=== PATIENT | female | born 1950 | race Caucasian/White ===

== ENCOUNTER 2019-02-22 13:28 | Day surgery (SDC) | payer BC, SELFPAY ==
--- NOTE | 2019-02-22 13:48 | HP.PCM_ITS ---
History and Physical Date of Admission: 02/22/19 Pre-Op History and Physical ? HPI: The patient is a 68 year old female presenting for pre-operative visit. She is scheduled for?incision and drainage and marsupialization of a right Bartholin's abscess, for?Bartholin's abscess and pain on?02/22/19. ??Procedure discussed along with risks, benefits and complications. ?Other alternatives discussed for management. Consent form signed??Yes.? PAST?MEDICAL?HISTORY PAST MEDICAL HISTORY Diagnosis Date ? Angio-edema ? ? BPPV (benign paroxysmal positional vertigo) ? ? Disorder of bone and cartilage, unspecified ? ? osteopenia ? Esophageal reflux ? ? Gastroesophageal reflux ? History of basal cell carcinoma (BCC) of skin 2015 ? right lower eyelid ? 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 per pt, perianal ? Mixed hyperlipidemia 2010 ? Hyperlipidemia ? Osteopenia ? ? PMH - PAST MEDICAL HISTORY OF ? ? Crohn's ? Unspecified essential hypertension ? ? Essential hypertension ? ? PAST?SURGICAL?HISTORY PAST SURGICAL HISTORY Procedure Laterality Date ? HERNIA REPAIR HX ? 2007 ? HERNIA REPAIR HX ? 2002 ? PANCREATECTOMY CENTRAL ? 05/07/2009 ? PAST SURGICAL HISTORY OF ? ? ? 08/2007 ?diomedes anal squamous crcinoma in situ ? REMOVAL GALLBLADDER ? ? ? 1982 ? REMVL COLON/TERM ILEUM/ILEOCOLOSTOMY ? ? ? 2000 ? TOTAL ABDOM HYSTERECTOMY ? ? ? 1996 ? ? CURRENT?MEDICATIONS Current Outpatient Medications Medication Sig Dispense Refill ? HYDROcodone-acetaminophen (NORCO) 5-325 mg per tablet Take 1 tablet by mouth every 6 hours as needed. ? ? ? Hydrochlorothiazide 12.5 mg capsule ? cefixime (SUPRAX) 400 mg capsule Take 400 mg by mouth. ? ? ? clindamycin (CLEOCIN) 150 mg capsule Take 300 mg by mouth. ? ? ? ondansetron (ZOFRAN) 4 mg tablet Take 1 tablet by mouth every 8 hours as needed. 60 tablet 1 ? Miralax / Gatorade Prep Miralax 238 gm bottle, (2) 32 oz bottles of Gatorade, & 4 Dulcolax 5 mg tabs- as directed per instructions ? ? ? blood sugar diagnostic (ACCU-CHEK GUIDE) test strip Test blood sugar three times a day and as needed for symptoms of high or low sugars DX: E11.9 (labile sugars at times) 300 Strip 3 ? clobetasol (TEMOVATE) 0.05 % ointment Apply 1 application to affected area as needed (for symptom relief). 45 g 0 ? Lancets (ACCU-CHEK FASTCLIX LANCET DRUM) lancets Test blood sugar 3 times daily. ?Dx: E11.9. 300 Each 3 ? dapagliflozin (FARXIGA) 5 mg tab Take 1 tablet by mouth daily with breakfast. 90 tablet 3 ? Insulin Syringe-Needle U-100 (BD INSULIN SYRINGE) 1 mL 25 x 1 syrg Use with B12 IM injections every 4 weeks 10 Syringe 1 ? potassium chloride ER (KLOR-CON M20) 20 mEq tablet Take 1 tablet by mouth twice daily. 180 tablet 3 ? omega-3 acid ethyl esters (LOVAZA) 1 gram capsule Take 2 capsules by mouth twice daily. 360 capsule 3 ? amLODIPine (NORVASC) 5 mg tablet Take 1 tablet by mouth once daily. 90 tablet 3 ? atorvastatin (LIPITOR) 20 mg tablet Take 1 tablet by mouth once daily. 90 tablet 3 ? Lancets (ACCU-CHEK SOFTCLIX LANCETS) lancets Test blood sugar(s) 3 times daily. ?Dx: Type 2 DM - Controlled E11.9 3 Each 3 ? Estradiol (YUVAFEM) 10 mcg tab vaginal tablet Use 1 tablet vaginally once daily. For 2 weeks. Then insert 1 tablet twice weekly. 24 tablet 3 ? glipiZIDE (GLUCOTROL) 5 mg tablet 1/2 tab at breakfast and 1 tab at dinner 150 tablet 3 ? montelukast (SINGULAIR) 10 mg tablet Take 1 tablet by mouth daily at bedtime. 90 tablet 3 ? lancets (BD ULTRA FINE LANCETS) 33 gauge misc Test up to 3 times daily for uncontrolled blood sugars 300 Each 3 ? cyanocobalamin 1,000 mcg/mL soln Inject 1 mL intramuscularly q 4 WEEKS. 3 Vial 3 ? propylene glycol (SYSTANE BALANCE) 0.6 % drop Use in the right eye. ? ? ? Magnesium Oxide 500 mg tab Take 2 tablets by mouth three times daily. ? ? ? famotidine (PEPCID) 20 mg tablet Take 1 tablet by mouth twice daily. For angioedema ? ? ? lifitegrast (XIIDRA) 5 % dpet Use 1 Drop in eyes twice daily. 3 Package 3 ? fluticasone (FLONASE) 50 mcg/actuation nasal spray Use 2 Sprays in the nose. ? ? ? cholecalciferol, Vitamin D3, (VITAMIN D3) 50,000 unit cap capsule Take 1 capsule by mouth once each week. ? 0 ? certolizumab pegol (CIMZIA) 400 mg/2 mL (200 mg/mL x 2) sykt sub-q syringe kit Inject 400 mg subcutaneously q 4 WEEKS. ? ? ? COMPOUNDED PRESCRIPTION once daily. Chewable Calcium Citrate 600/300 International Units 2x daily ? ? ? zbxtou-dgbjoseo-hlsuurk (ZENPEP) 20,000-68,000 -109,000 unit cpDR Take ?by mouth three times daily with meals. ? ? ? ANTIOX #11/OM3/DHA/EPA/LUT/BRISEIDA (OCUVITE ADULT 50+ ORAL) Take ?by mouth once daily. ? ? ? fexofenadine (LEXUS ALLERGY) 180 mg tablet Take 180 mg by mouth twice daily. ? ? ? lansoprazole (PREVACID) 30 mg capsule Take 1 capsule by mouth once daily. ? ? ? mercaptopurine 50 mg tablet Take ?by mouth. Take 1.5 tablets daily ? ? ? CHOLESTYRAMINE (BULK) POWDER 1 scoop in water twice daily (Patient taking differently: On hold 02/22/2019 ) 1 large cannister 5 ? triamcinolone acetonide(NASACORT AQ 55 MCG NASAL SPRAY AEROSOL) PRN ? 0 ? predniSONE (DELTASONE) 10 mg tablet TAKE 2 TABLETS DAILY FOR 2 WEEKS THEN 1 TABLET DAILY FOR 2 WEEKS ? 0 ? amoxicillin (POLYMOX, AMOXIL) 500 mg capsule TAKE ONE CAPSULE BY MOUTH EVERY SIX HOURS ? 1 ? No current facility-administered medications for this visit.? ? ALLERGIES:?Hay Fever [Seasonal Allergies]; Lactose; Nsaids (Non-Steroidal Anti- Inflammatory Drug) ? PERSONAL HISTORY:? SOCIAL?HISTORY Social History ??Socioeconomic History ?Marital status: ?Spouse name: Erik ?Number of children: 3 ?Years of education: Not on file ?Highest education level: Not on file ??Occupational History ?Occupation: Retired ??Social Needs ?Financial resource strain: Not on file ?Food insecurity: ?Worry: Not on file ?Inability: Not on file ?Transportation needs: ?Medical: Not on file ?Non-medical: Not on file ??Tobacco Use ?Smoking status: Never Smoker ?Smokeless tobacco: Never Used ??Substance and Sexual Activity ?Alcohol use: No ?Drug use: No ?Sexual activity: Not Currently ?Partners: Male ??Lifestyle ?Physical activity: ?Days per week: Not on file ?Minutes per session: Not on file ?Stress: Not on file ??Relationships ?Social connections: ?Talks on phone: Not on file ?Gets together: Not on file ?Attends anabaptism service: Not on file ?Active member of club or organization: Not on file ?Attends meetings of clubs or organizations: Not on file ?Relationship status: Not on file ?Intimate partner violence: ?Fear of current or ex partner: Not on file ?Emotionally abused: Not on file ?Physically abused: Not on file ?Forced sexual activity: Not on file ??Other Topics ?Concerns: ?Not on file ??Social History Narrative ?Not on file ? FAMILY HISTORY:? FAMILY?HISTORY FAMILY HISTORY Problem Relation Age of Onset ? Aneurysm Father ? ? other (crohns) Father ? ? other (tuberculoisis as a child) Father ? ? other (angina) Father ? ? other (crohns) Daughter ? ? Heart Failure Mother ? ? other (suicide) Sister ? ? Aneurysm Brother ? ? other (lung issues) Brother ? ? Alzheimer's Disease Maternal Grandmother ? ? Coronary Artery Disease Maternal Grandfather ? ? Alzheimer's Disease Paternal Grandmother ? ? Seizures Paternal Grandfather ? ? Hyperlipidemia Brother ? ? Psoriasis Brother ? ? No Ocular Disease No Family History ? ? REVIEW OF SYMPTOMS: GENERAL: denies fevers or chills ENDOCRINOLOGY: has not been on steroids Cardiology : denies palpitations or chest pain Respiratory: denies SOB or cough Hematology: denies history of prolonged bleeding or easy bruising or VTE Allergy: Denies history of personal or family history of allergy to anesthesia ? ? PHYSICAL EXAMINATION: ? VITALS:?Blood pressure 116/60, weight 191 lb (86.6 kg). ? GENERAL:??The patient is well nourished, well hydrated in no acute distress. ?, The patient is oriented to time, place, and person. LUNGS:?Clear to auscultation bilaterally. no wheezes, rhonchi or rales HEART:?Regular rate and rhythm, Normal heart sounds and No murmurs or gallops PELVIC: External genitalia are erythematous. ?She has normal labia majora and normal labia minora. ?The mons pubis is normal with normal hair description pattern. ?There is erythema at the introitus. ?The perineal body is attenuated and somewhat erythematous. ?There are no fissures or ulcerations. ?Her mole appearing urethra. ?Vagina with flattened, pale rugated. ?Right Bartholin's gland area is significantly enlarged approximately 7 cm in diameter firm, indurated, exquisitely tender, fluctuant area. ?No necrotic areas noted. ? ? ? IMPRESSION:?Right Bartholin's abscess ? PLAN:???The risks/benefits/alternatives and personal involved for the planned?incision and drainage and marsupialization of right Bartholin's abscess?were reviewed with the patient. Her questions were answered to her satisfaction and she desires to proceed. ?Consent was signed. ?I reviewed with her postop instructions and expectations. ? ? I have reviewed and updated past medical and surgical history, medications and allergies?
[2019-02-22 14:25] VITALS: BP 112/59; PULSE 57; RESP 16; TEMP 37.1; O2SAT 95; BMI 31.0
--- NOTE | 2019-02-22 15:30 | BAR_PTH ---
PATIENT: MARLENA AVILA [place]: [facility] [place] U#:[id number] AGE/SX: 68/F ROOM: RE02/22/[address]: Dr. Juanita Hayes MD : [id number] BED: DIS: 02/22/2019 SPEC #: [id number] RECD: 02/23/19 07:39 STATUS: CECI PHIL #: [id number] GAURANG: 02/22/19 15:[address]: Juanita Hayes DEPT: SURGICAL PATHOLOGY RECD BY: Skye Adhikari ENTERED: 02/23/19 09:33 SP TYPE: KINSEY CYST OTHR DR: Dr. Gladys Alvarado MD Tissues: Bartholin's gland cyst Procedures: Surgery Specimen Level III HEADER OPERATION: Incision and drainage, Bartholin cyst PRE-OP DIAGNOSIS: Bartholin cyst POS-OP DIAGNOSIS: Bartholin hematoma TISSUE SUBMITTED: Bartholin hematoma MICROSCOPIC DIAGNOSIS Bartholin's cyst hematoma, removal: Fragments of organizing blood clot. AM:marium 02/24/19 MICROSCOPIC DESCRIPTION Slides are reviewed. GROSS DESCRIPTION Received is one container labeled with the patient name and designated Bartholin hematoma. The specimen consists of multiple fragments of blood clot that in aggregate measure 6 x 5.5 x 2 cm. No tissue is identified. Corporate Development Analyst portion of the specimen is submitted in two cassettes. /SJ:sp 02/23/19 TC: 5 CPT: 39032
[2019-02-22 15:31] LABS: Bedside Glucose 142 mg/dL (70-110)
[2019-02-22] MEDS: Lactated Ringers 1,000 ML 100 ML IV (15:33)
--- NOTE | 2019-02-22 19:29 | PCM.DC.D&C ---
Discharge Diet: No Restrictions Discharge Activity: Return to Normal Activity, May Shower, May Take a Tub Bath - in 2 weeks. However, you may soak in a small amount of warm water BID for pain relief May shower in (days): 1 May resume sexual activity in: 3 weeks Call your doctor if your incision/area has: Sudden Increased Bleeding, Foul Smelling Discharge Call your doctor if you observe: Fever of 101 or Higher, Using more than one pad per hour - for 2 hrs in a row Cleanse incision/area with: Soap & Water Allergies/Adverse Reactions: Allergies NSAIDS (Non-Steroidal Anti-Inflamma Adverse Reaction (Verified 02/22/19 14:35) intolerance d/t chrones Medications to take at Discharge Amlodipine Besylate [Norvasc] 5 mg PO DAILY 02/22/19 Atorvastatin Calcium [Lipitor] 20 mg PO DAILY 02/22/19 C,E,Zinc,Copper 11/Vmpag7v/Lut [Ocuvite Adult 50 Plus Softgel] 1 ea PO DAILY 02/22/19 Calcium Citrate/Vitamin D3 [Calcium Citrate - Vit D Caplet] 1 ea PO BID 02/22/19 Cefixime 400 mg PO DAILY 02/22/19 Certolizumab Pegol [Cimzia] 400 mg SQ QMONTH 02/22/19 Clindamycin HCl 150 mg PO 4X/DAY 02/22/19 Dapagliflozin Propanediol [Farxiga] 5 mg PO DAILY 02/22/19 Famotidine [Acid Controller] 20 mg PO BID 02/22/19 Fexofenadine HCl [Bebe Allergy] 180 mg PO BID 02/22/19 Floragen 3 1 cap PO QHS 02/22/19 Lansoprazole [Prevacid] 30 mg PO DAILY 02/22/19 Lipase/Protease/Amylase [Zenpep Dr 20,000 Unit Capsule] 2 ea PO TID 02/22/19 Magnesium Oxide [Magnesium] 500 mg PO BID 02/22/19 Mercaptopurine 75 mg PO DAILY 02/22/19 Montelukast [Singulair] 10 mg PO DAILY 02/22/19 Edinburgh-3 Acid Ethyl Esters [Lovaza] 2 gm PO BID 02/22/19 Ondansetron [Zofran Odt] 4 mg PO Q8H PRN PRN 02/22/19 Oxycodone HCl/Acetaminophen [Percocet 5/325] 1 tablet PO Q8 PRN 3 Days #10 tablet 02/22/19 Potassium Chloride [Klor-Con M20] 20 meq PO BID 02/22/19 Prednisone 20 mg PO DAILY 02/22/19 Triamcinolone Acetonide [Nasacort] 2 spray NS DAILY 02/22/19 The following prescriptions were given: Oxycodone HCl/Acetaminophen [Percocet 5/325] 1 tablet PO Q8 PRN 3 Days #10 tablet PRN Reason: Pain Transmission Status: Received by [facility]/pharmacy #[id number] Primary Care Physician: Gladys Alvarado MD [Primary Care Provider] - Test Results: Test results from this visit will be discussed in further detail at your follow-up appointment, if applicable. Please Follow Up With: Juanita Hayes MD - [phone] When: on 02/25 as scheduled or as needed
[2019-02-22 19:30] VITALS: BP 112/59; BP 121/59; PULSE 68; RESP 14; TEMP 36.3; O2SAT 98
--- NOTE | 2019-02-22 19:31 | OP.PCM_ITS ---
Report of Operation Date of Procedure: 02/22/19 Pre-Operative Diagnosis: vulvar pain, Bartholin's cyst-right Post-Operative Diagnosis: hematoma of right bartholin's cyst Surgery/Procedure Performed:: Vision and drainage of right Bartholin's hematoma with control of bleeding from base of hematoma ebd special education teacher: None Type of Anesthesia:: MAC/Supplemental/Local Anesthesiologist: Kaye Aly Special Medications: none Specimen's removed: hematoma debris, cultures Drains: none Estimated Blood Loss (mL): 40 Fluids Replaced: LR Description of Procedure: Patient was taken the operating room was prepped and draped in dorsolithotomy position. The area of the right Bartholin's was identified. It was very tense and measured 5 x 7 cm. An incision was made on the medial side inside the hymenal ring from 7-8 o'clock. A large amount of hematoma material returned. It was very organized. There is no malodor or purulent discharge. There was continued bleeding from the base of the hematoma cavity. The incision was extended to allow placement of deep sutures. Figure of eight 3-0 Vicryl rrapide sutures were placed in the base. 3 layers of sutures were placed in the cavity. I also placed some Hilary and held pressure for 2 minutes after each layer. I then ran the edges of the opening with 3-0 Vicryl repeat in a running locked fashion as the edges of the incision were using. Some Hilary was placed on the top of the incision and pressure was held for 2 minutes. There is no active bleeding noted at that time. The patient was awakened and taken to recovery room in stable condition. Sponge and needle counts were correct. Vaginal sweep was completed by me. Grafts/Implants Used: none - Complications none - Admit VTE Documentation VTE Present on Admission: No VTE Mechan Device Prophylaxis: SCD's VTE Pharm Prophylaxis ordered?: No Reason prophylaxis not ordered:: Procedure Not Indicated
[2019-02-22 19:35] VITALS: BP 112/59; BP 121/56; PULSE 62; RESP 14; O2SAT 98
[2019-02-22 19:40] VITALS: BP 112/59; BP 114/62; PULSE 62; RESP 14; O2SAT 100
[2019-02-22 19:42] VITALS: BP 112/59; BP 117/66; PULSE 60; RESP 14; TEMP 36.5; O2SAT 100
[2019-02-22 20:06] VITALS: BP 112/59
== END 2019-02-22 20:11 | disposition home or self-care (01) ==
LOC: SDC 13:36 → AC 13:38
PROVIDERS: Family Provider Internal Medicine; PCP Internal Medicine; Referring Provider Obstetrics & Gynecology; Visit Provider Obstetrics & Gynecology
PROC: (CPT 56420; principal; 2019-02-22 15:15)
DX: N75.1 Abscess of Bartholin's gland (principal); K21.9 Gastro-esophageal reflux disease without esophagitis; E78.2 Mixed hyperlipidemia; I10 Essential (primary) hypertension; K50.90 Crohn's disease, unspecified, without complications; D51.0 Vitamin B12 deficiency anemia due to intrinsic factor deficiency; E11.9 Type 2 diabetes mellitus without complications; Z85.828 Personal history of other malignant neoplasm of skin; Z79.4 Long term (current) use of insulin; Z79.899 Other long term (current) drug therapy
CPT/HCPCS: 00940; 56420; 82962; 87070; 87075; 87205; 88304; J7120

== ENCOUNTER 2021-07-15 19:59 | Emergency (ER) | payer OTHER, SELFPAY ==
[2021-07-15 20:01] VITALS: BP 127/78; PULSE 87; RESP 28; TEMP 36.7; O2SAT 100; BMI 30.2
--- NOTE | 2021-07-15 20:28 | EKG12_ITS ---
Test Reason : CP Blood Pressure : / mmHG Vent. Rate : 083 BPM Atrial Rate : 083 BPM P-R Int : 146 ms QRS Dur : 084 ms QT Int : 350 ms P-R-T Axes : 047 012 064 degrees QTc Int : 411 ms Sinus rhythm with marked sinus arrhythmia Nonspecific T wave abnormality Abnormal ECG Confirmed by OSCAR JACKSON, CARL ([id number]), sports editor JOHNIE LOPEZ ([id number]) on 07/17/2021 9:43:29 AM Referred By: RU Confirmed By:CARL MOORE MD
--- NOTE | 2021-07-15 20:30 | ED.VIS.CHEST ---
HPI History of Present Illness Chief Complaint: Chest Pain Detail of Chief Complaint: Chest pain that she has had for about a week Informant: patient Narrative Narrative: Patient presents with chest discomfort that started about a week ago. Patient has discomfort off-and-on that is worse with exertion and activity. She had COVID and was diagnosed on June 24. Patient recovered from that and apparently then developed secondary bacterial pneumonia. Patient then had an episode of A. fib. Patient seen by primary care physician in the office today and referred to ER for further evaluation of her chest pain. No history of PE or DVT. Patient states she had a stress test many years ago and has never had a heart catheterization. Patient tells me she has had COVID 3 times because she has no immune system. Patient has history of Crohn's as well as diabetes, hypertension, and high cholesterol. Prior Similar Symptoms: No PFSH PFSH Medical History (Updated 07/15/21 @ 22:[address] Tayla Mitchell, DO) High cholesterol Home Medications C,E,zinc,copper [id number] 1 ea PO DAILY 02/22/19 [History Last Taken 02/22/19 08:00] Floragen 3 1 cap PO QHS 02/22/19 [History Last Taken Unknown] amlodipine 5 mg PO DAILY 02/22/19 [History Last Taken 02/22/19 08:00] atorvastatin 20 mg PO DAILY 02/22/19 [History Last Taken 02/22/19 08:00] calcium citrate-vitamin D3 1 ea PO BID 02/22/19 [History Last Taken 02/22/19 08:00] cefixime 400 mg PO DAILY 02/22/19 [History Last Taken 02/22/19 08:00] certolizumab pegol 400 mg SQ QMONTH 02/22/19 [History Last Taken Unknown] clindamycin HCl 150 mg PO 4X/DAY 02/22/19 [History Last Taken 02/22/19 08:00] dapagliflozin 5 mg PO DAILY 02/22/19 [History Last Taken 02/22/19 08:00] famotidine 20 mg PO BID 02/22/19 [History Last Taken 02/22/19 08:00] fexofenadine 180 mg PO BID 02/22/19 [History Last Taken 02/22/19 08:00] lansoprazole 30 mg PO DAILY 02/22/19 [History Last Taken 02/22/19 08:00] uklfen-wunyxrzh-eudoimp 2 ea PO TID 02/22/19 [History Last Taken 02/22/19 08:00] magnesium oxide 500 mg PO BID 02/22/19 [History Last Taken 02/22/19 08:00] mercaptopurine 75 mg PO DAILY 02/22/19 [History Last Taken 02/22/19 08:00] montelukast 10 mg PO DAILY 02/22/19 [History Last Taken 02/22/19 08:00] omega-3 acid ethyl esters 2 gm PO BID 02/22/19 [History Last Taken Unknown] ondansetron 4 mg PO Q8H PRN PRN 02/22/19 [History Last Taken 02/22/19 08:00] potassium chloride 20 meq PO BID 02/22/19 [History Last Taken 02/22/19 08:00] prednisone 20 mg PO DAILY 02/22/19 [History Last Taken 02/22/19 08:00] triamcinolone acetonide 2 spray NS DAILY 02/22/19 [History Last Taken Unknown] Allergy/AdvReac Type Severity Reaction Status Date / Time NSAIDS (Non-Steroidal AdvReac intolerance Verified 07/15/21 20:04 Anti-Inflamma d/t chrones Social History Smoking Status: Never smoker ROS ROS ED Review of Systems ROS Unobtainable: other Constitutional Constitutional ED: Reports lethargy; Denies chills, fever(s), sweats or weight loss Eyes Eyes: Denies blurry vision, change in vision or diplopia ENT ENT ED: Denies rhinorrhea or sore throat Cardiovascular Cardiovascular: Reports chest pain and racing heartbeat; Denies orthopnea Respiratory/Chest Respiratory/Chest: Reports cough and dyspnea on exertion; Denies orthopnea or sputum Gastrointestinal Gastrointestinal: Denies abdominal pain, diarrhea, nausea or vomiting Genitourinary Genitourinary ED: Denies dysuria, hematuria or urinary frequency Musculoskeletal Musculoskeletal: Denies arthralgias, back pain, myalgias or neck pain Integumentary Denies abscess, Abrasions or rash Neurologic Neurologic: Denies headache(s) or weakness Psychiatric Psychiatric: Denies anxiety, depression or suicidal thoughts Endocrine Endocrinology: Denies polydipsia, polyphagia or polyuria Hematologic/Lymphatic Hematologic/Lymphatic: Denies easy bleeding, easy bruising or lymphadenopathy Allergic/Immunologic Allergic/Immunologic ED: Denies mouth swelling, tongue swelling or urticaria EXAM Physical Exam Const Vital Signs: 07/15/21 20:01 07/15/21 20:41 07/15/21 21:52 Temperature 98.0 F Temperature Source Temporal Pulse Rate 87 79 Pulse Rate [Sitting] Pulse Rate [Standing] Respiratory Rate 28 H 17 Blood Pressure 127/78 H 142/78 H Blood Pressure [Sitting] Blood Pressure [Standing] Blood Pressure Mean 94 99 Blood Pressure Mean [Sitting] Blood Pressure Mean [Standing] Pulse Ox 100 97 99 Oxygen Delivery Method Room Air Room Air Room Air 07/15/21 21:57 Temperature Temperature Source Pulse Rate Pulse Rate [Sitting] 79 Pulse Rate [Standing] 73 Respiratory Rate Blood Pressure Blood Pressure [Sitting] 142/78 H Blood Pressure [Standing] 140/78 H Blood Pressure Mean Blood Pressure Mean [Sitting] 99 Blood Pressure Mean [Standing] 98 Pulse Ox Oxygen Delivery Method Positive well nourished and well developed General Appearance ED: well developed and NAD HEENT Reports TM's clear and moist mucous membranes normocephalic and atraumatic; Negative for trauma or tenderness Tympanic Membrane ED: Yes TM's clear Eyes PERRL and EOMs intact bilaterally General Eye ED: Negative for pale conjunctiva or scleral icterus Neck no lymphadenopathy, supple and no JVD General: Negative for tenderness Chest Wall inspection of chest normal and palpation of chest normal Chest: Negative for tenderness Resp normal respiratory effort and clear to auscultation bilaterally Effort and Inspection: Negative for respiratory distress or pain with movement Auscultation: Negative for rhonchi, wheezes or diminished lung sounds Cardio regular rate, regular rhythm, S1 normal heart sound, S2 normal heart sound and no murmurs Peripheral Pulses: pulses 2+ throughout GI normal to inspection, nondistended, normoactive bowel sounds, soft to palpation, non-tender, non-distended and no masses Back/Spine no CVA tenderness and no thoracic nor lumbar tenderness Extremity normal to inspection General Extremety ED: Negative for edema General Extremity: Negative for edema Neuro oriented x3, CN's II-XII intact bilaterally, no sensory deficits noted and gait normal Sensorium / Orientation: awake, alert, oriented to person, oriented to place and oriented to time Motor Exam: strength 5/5 throughout and strength abnormal Psych mental status grossly normal Skin no rashes or lesions noted and no wounds Heart Score History: Moderately Suspicious ECG: Nonspecific Repolarization Age: >/= 65 years Risk Factors: >/= 3 Risk Factors or History of CAD Troponin: </= Normal Limit Score: 6 MDM MDM MDM Narrative Medical decision making narrative: IV line established on arrival. Patient placed on a classroom monitor. Patient cannot take NSAIDs therefore was given Plavix 75 mg p.o. D-dimer was normal. And troponin was normal. Chest x-ray was unremarkable and I believe her elevated white count may be related to recent steroid usage. At this point the etiology of her dyspnea and chest discomfort unclear. 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 Discussed case with patient's primary care physician Dr. Alvarado who recommended discussing with cardiology. I spoke with Dr. Isaacs and given the fact that she has had pain for a week with unremarkable EKG and normal troponin he felt she could follow-up as an outpatient and potentially get a outpatient stress test. Patient is comfortable with this. Lab Data Attestation: I reviewed the patient's lab results. Labs: Laboratory Results - last 24 hr 07/15/21 07/15/21 07/15/21 20:10 20:10 20:10 WBC 16.4 H RBC 5.20 Hgb 14.6 Hct 45.1 MCV 86.7 MCH 28.1 MCHC 32.4 RDW Std Deviation 45.0 H RDW Coeff of [place] 14.3 Plt Count 361 MPV 10.5 Immature Gran % (Auto) 0.800 Neut % (Auto) 69.2 Lymph % (Auto) 18.9 L [place] % (Auto) 9.6 Eos % (Auto) 1.1 Baso % (Auto) 0.4 Absolute Neuts (auto) 11.3 H Absolute Lymphs (auto) 3.09 Nucleated RBC % 0 Differential Comment SCANNED Diff Path Review May foll D-Dimer Quant (PE/DVT) 0.45 Sodium 141 Potassium 3.9 Chloride 110 H Carbon Dioxide 22.0 Anion Gap 9 BUN 24 H Creatinine 0.90 Estim Creat Clear Calc 53.83 Est GFR (MDRD) Af Amer 80 Est GFR (MDRD) Non-Af 66 BUN/Creatinine Ratio 26.8 H Glucose 149 H Calcium 9.3 Troponin I High Sens 5 Radiography Chest X-Ray - ED: 1 View Diagnostic Testing: Clinical Impression(s) from Imaging Studies Chest X-Ray 07/15/21 20:50 IMPRESSION: No acute findings in the chest. Electronically Signed: Latrell Quinones MD at 21:13 EST Tel , Service support , 1 view chest ray obtained interpreted by myself as no acute disease process EKG Initial EKG: Attestation: I personally reviewed and interpreted this EKG as follows: Comments: Sinus rhythm with ventricular rate of 83 bpm with nonspecific T wave flattening in the lateral leads. No old EKGs available for comparison Prior EKG tracings: not available for review Discharge Plan Triage Chief Complaint: Chest Pain ED Provider: Tayla Mitchell Dx/Rx/DC Orders Clinical Impression: Exertional dyspnea, Chest pain Instructions: ED Chest Pain, Uncertain Cause Prescriptions: No Action prednisone 10 MG tablet 20 mg PO DAILY RF: 0 atorvastatin 20 MG tablet 20 mg PO DAILY RF: 0 clindamycin HCl 150 MG capsule 150 mg PO 4X/DAY RF: 0 fexofenadine 180 MG tablet 180 mg PO BID RF: 0 amlodipine 5 MG tablet 5 mg PO DAILY RF: 0 potassium chloride 20 MEQ tablet,ER particles/crystals 20 meq PO BID RF: 0 famotidine 20 MG tablet 20 mg PO BID RF: 0 lansoprazole 30 MG capsule 30 mg PO DAILY RF: 0 triamcinolone acetonide 1 SPRAY aerosol,spray 2 spray NS DAILY RF: 0 mercaptopurine 50 MG tablet 75 mg PO DAILY RF: 0 montelukast 10 MG tablet 10 mg PO DAILY RF: 0 ondansetron 4 MG tablet 4 mg PO Q8H PRN PRN (Reason: Nausea) RF: 0 omega-3 acid ethyl esters 1 GM capsule 2 gm PO BID RF: 0 magnesium oxide 500 MG capsule 500 mg PO BID RF: 0 calcium citrate-vitamin D3 1 EACH tablet 1 ea PO BID RF: 0 certolizumab pegol 400 MG/2 ML syringe kit 400 mg SQ QMONTH RF: 0 cefixime 400 MG capsule 400 mg PO DAILY RF: 0 C,E,zinc,copper [id number] 1 EACH capsule 1 ea PO DAILY RF: 0 dapagliflozin 5 MG tablet 5 mg PO DAILY RF: 0 [id number] 1 EACH capsule,delayed release(/EC) 2 ea PO TID RF: 0 Floragen 3 1 cap PO QHS RF: 0 Primary Care Provider: Gladys Alvarado Referrals: Gladys Alvarado MD [Primary Care Provider] - 3-5 Days Disposition Disposition: Home, Self Care
[2021-07-15 20:41] VITALS: O2SAT 97
--- NOTE | 2021-07-15 20:50 | RAD_ITS ---
EXAM: XR CHEST, 1 VIEW CLINICAL INDICATION: chest pain TECHNIQUE: Frontal view of the chest. This report was created using [employer] report generation technology. COMPARISON: None. FINDINGS: LUNGS AND PLEURAL SPACES: Unremarkable. No consolidation or edema. No pneumothorax. No effusion. HEART: Unremarkable. Cardiac silhouette not enlarged. MEDIASTINUM: Central airways and mediastinal contour are unremarkable. BONES/JOINTS: Degenerative changes of acromioclavicular joints. Degenerative changes of the spine. SOFT TISSUES: Unremarkable. RAD/Chest 1 View (Portable) IMPRESSION: No acute findings in the chest. Electronically Signed: Latrell Quinones MD at 21:13 EST Tel , Service support ,
[2021-07-15] MEDS: 0.9% Normal Saline 1,000 ML 150 ML IV (20:52)
[2021-07-15] MEDS: Clopidogrel Bisulfate 300 MG Tablet 75 MG PO (20:52)
[2021-07-15 21:00] LABS: Absolute Lymphocyte Count 3.09 X10^3/uL (0.83-4.51); Absolute Neutrophil Count 11.3 X10^3/uL (2.0-7.7); Basophil# 0.07 X10^3/uL; Basophil% 0.4 % (0-1); Differential Indicated SCAN CRITERIA MET; Eosinophil# 0.18 X10^3/uL; Eosinophils% 1.1 % (0-5); Hematocrit 45.1 % (37-47); Hemoglobin 14.6 g/dL (12.0-15.0); Lymphocyte # 3.09 X10^3/ul (0.83-4.51); Lymphocyte % 18.9 % (19-41); Mean Corp Hgb Conc 32.4 g/dL (32-36); Mean Corpuscular Hgb 28.1 pg (27.0-32.0); Mean Corpuscular Volume 86.7 fL (81-99); Mean Platelet Vol. 10.5 fl (6.2-12.0); Monocyte# 1.57 X10^3/uL; Monocyte% 9.6 % (0-10); NRBC Flagged by Analyzer 0 % (0-5); Neutrophil # 11.34 X10^3/uL (2.7-7.7); Neutrophil % 69.2 % (47-70); POSITIVE DIFFERENTIAL YES; Platelet Count 361 K/mm3 (150-450); RBC Distribution Width CV 14.3 % (11.6-14.6); White Blood Count 16.4 K/mm3 (4.4-11.0)
[2021-07-15 21:11] LABS: D-Dimer Quantitative (DVT/PE) 0.45 FEU/ug/m (0.27-0.49)
[2021-07-15 21:12] LABS: Anion Gap 9 (5-15); BUN 24 mg/dL (7-18); BUN/Creat Ratio 26.8 RATIO (10-20); Calcium,Total 9.3 mg/dL (8.5-10.1); Chloride 110 mmol/L (98-107); EST Glomerular Filtration Rate 66 mL/min (>60); Est Glom Filt Rate - Afr Amer 80 mL/min (>60); Estimated Creatinine Clearance 53.83 ml/min; Glucose 149 mg/dL (74-106); Potassium 3.9 mmol/L (3.5-5.1); Sodium Level 141 mmol/L (136-145); Troponin-I HS 5 pg/mL (3.0-54.0)
[2021-07-15 21:19] LABS: Differential Comment SCANNED
[2021-07-15 21:52] VITALS: BP 142/78; PULSE 79; RESP 17; O2SAT 99
[2021-07-15 21:57] VITALS: BP 140/78; BP 142/78; PULSE 73; PULSE 79
[2021-07-15 22:43] LABS: Troponin-I HS 5 pg/mL (3.0-54.0)
[2021-07-15 22:48] VITALS: BP 131/75; PULSE 69; RESP 14; O2SAT 97
[2021-07-16 13:34] LABS: Pathologist Review Reviewed
== END 2021-07-15 22:55 | disposition home or self-care (01) ==
PROVIDERS: Emergency Provider Emergency Medicine; PCP Internal Medicine; Visit Provider Emergency Medicine
DX: R07.89 Other chest pain (principal); E11.9 Type 2 diabetes mellitus without complications; R06.09 Other forms of dyspnea; E78.00 Pure hypercholesterolemia, unspecified; I10 Essential (primary) hypertension; Z79.899 Other long term (current) drug therapy; Z86.16 Personal history of COVID-19
CPT/HCPCS: 71045; 80048; 84484; 85025; 85379; 87426; 93005; 99284; J7030; A4216

== ENCOUNTER → 2022-05-27 | Outpatient (CLI) | payer OTHER, SELFPAY ==
[2022-05-27 13:12] LABS: Rheumatoid Factor < 10.0 IU/mL (<15)
[2022-05-28 15:08] LABS: SJOGREN'S Anti-SS-A test < 0.2 AI (0.0-0.9); SJOGREN'S Anti-SS-B test < 0.2 AI (0.0-0.9)
[2022-05-28 16:22] LABS: ANTINUCLEAR ANTIBODIES DIRECT Negative (Negative)
== END | disposition home or self-care (01) ==
LOC: LAB 11:57
PROVIDERS: PCP Internal Medicine; Referring Provider Otolaryngology Otolaryngology/Facial Plastic Surgery; Visit Provider Otolaryngology Otolaryngology/Facial Plastic Surgery
DX: M35.00 Sjogren syndrome, unspecified (principal)
CPT/HCPCS: 36415; 86038; 86235; 86431

== ENCOUNTER → 2023-03-27 | Outpatient (CLI) | payer MEDICARE, OTHER, SELFPAY ==
[2023-03-27 11:48] LABS: EXAGEN MAILED SPECIMEN
[2023-03-27 12:19] LABS: Erythrocyte Sedimentation Rate 9 mm/hr (0-30)
[2023-03-27 12:22] LABS: Absolute Lymphocyte Count 1.85 X10^3/uL (0.83-4.51); Absolute Neutrophil Count 6.7 X10^3/uL (2.0-7.7); Basophil# 0.05 X10^3/uL; Basophil% 0.5 % (0-1); Hematocrit 42.6 % (37-47); Hemoglobin 13.4 g/dL (12.0-15.0); Lymphocyte # 1.85 X10^3/ul (0.83-4.51); Lymphocyte % 18.8 % (19-41); Mean Corp Hgb Conc 31.5 g/dL (32-36); Mean Corpuscular Hgb 28.3 pg (27.0-32.0); Mean Corpuscular Volume 89.9 fL (81-99); Mean Platelet Vol. 10.7 fl (6.2-12.0); Monocyte# 0.96 X10^3/uL; Monocyte% 9.7 % (0-10); NRBC Flagged by Analyzer 0 % (0-5); Neutrophil # 6.66 X10^3/uL (2.7-7.7); Neutrophil % 67.6 % (47-70); Platelet Count 253 K/mm3 (150-450); RBC Distribution Width CV 14.3 % (11.6-14.6); Red Blood Count 4.74 M/mm3 (4.2-5.4); White Blood Count 9.9 K/mm3 (4.4-11.0)
[2023-03-27 12:29] LABS: Color, Urine Yellow (Yellow); Glucose, Dipstick Normal (Normal); Ketone-Dipstick 5 mg/dl (Negative); Leukocyte Esterase-Dipstick 25 /ul (Negative); Nitrite-Dipstick Negative (Negative); Occult Blood-Urine Negative /ul (Negative); Protein-Dipstick 30 mg/dl (Negative); Specific Gravity, Urine 1.025 (1.002-1.030); Urine Bilirubin Dipstick Negative (Negative); Urine Clarity Clear (Clear); Urine Urobilinogen 1 mg/dl (Normal)
[2023-03-27 12:47] LABS: ALB/GLOB Ratio 0.9 RATIO (0.9-2.4); AST(SGOT) 27 U/L (15-37); Alanine Aminotransfer ALT/SGPT 50 U/L (13-56); Albumin, Serum 3.6 g/dL (3.2-5.0); Alkaline Phosphatase 132 U/L (45-117); Anion Gap 4 (5-15); BUN 21 mg/dL (7-18); BUN/Creat Ratio 26.2 RATIO (10-20); Calcium,Total 9.3 mg/dL (8.5-10.1); Chloride 110 mmol/L (98-107); EST Glomerular Filtration Rate 75 mL/min (>60); Est Glom Filt Rate - Afr Amer 91 mL/min (>60); Globulin 3.9 g/dL (2.2-4.2); Glucose 174 mg/dL (74-106); Potassium 3.8 mmol/L (3.5-5.1); Protein, Total 7.5 g/dL (6.4-8.2); Sodium Level 141 mmol/L (136-145)
[2023-03-27 13:07] LABS: Protein:Creat Ratio 132 mg/g CRE (0-200)
[2023-03-27 13:17] LABS: Hepatitis B Surf AB - EMP Non-Reactive; Hepatitis B Surface Antigen Non-Reactive (Nonreactive); Hepatitis C Antibody Non-Reactive (Nonreactive)
== END | disposition home or self-care (01) ==
LOC: MTLAB 10:44
PROVIDERS: PCP Internal Medicine; Referring Provider Internal Medicine Rheumatology; Visit Provider Internal Medicine Rheumatology
DX: M07.60 Enteropathic arthropathies, unspecified site (principal); K50.90 Crohn's disease, unspecified, without complications; R76.8 Other specified abnormal immunological findings in serum; K76.0 Fatty (change of) liver, not elsewhere classified
CPT/HCPCS: 36415; 80053; 81002; 82570; 84156; 85025; 85652; 86706; 86803; 87340